=== PATIENT | female | born 1955 | race Caucasian/White ===

== ENCOUNTER 2016-10-20 13:25 | Emergency (ER) | payer MEDICARE ==
[2016-10-20 14:32] VITALS: BP 150/78
--- NOTE | 2016-10-20 14:37 | UC ---
Back Pain HPI - HPI Summary HPI Summary: left side of low back pain ful, pain shoots down in to buttocks, patient is concerned about hardware failure when she stepped hard down off a curb 2 days ago - History of Current Complaint Chief Complaint: UCBackPain Stated Complaint: SEVERE BACK PAIN-LEFT SIDE-BACK SURGERY 5WKS AGO Time Seen by Provider: 10/20/16 14:36 Hx Obtained From: Patient ?: No Onset/Duration: Sudden Onset - 2, Still Present Timing: Constant Severity Initially: Moderate Severity Currently: Moderate Pain Intensity: 8 Pain Scale Used: 0-10 Numeric Back Pain: Is Discrete @ - left lower back Character: Aching, Spasmodic Aggravating: Movement, Bending, Walking Alleviating: Rest, Position Associated Signs And Symptoms: Positive: Weakness - right leg, Pain with Weight Bearing. Negative: Bladder Incontinence, Bowel Incontinence - Allergies/Home Medications Allergies/Adverse Reactions: Allergies Allergy/AdvReac Type Severity Reaction Status Date / Time No Known Allergies Allergy Verified 10/20/16 14:32 Home Medications: Home Medications QUEtiapine TAB* [Seroquel TAB*] 200 mg PO BEDTIME 10/20/16 [History Confirmed ] Venlafaxine EXT RELEASE CAP* [Effexor Xr CAP*] 150 mg PO DAILY 10/20/16 [ History Confirmed 10/20/16] PMH/Surg Hx/FS Hx/Imm Hx Previously Healthy: Yes Psychological History Of: Reports: Anxiety, Depression - Surgical History Surgical History: Yes Surgery Procedure, Year, and Place: SPINAL ANIYA AND PINS. HYSTERECTOMY. Back surgery. - Family History Known Family History: Positive: None - Social History Occupation: Disabled Lives: With Family Alcohol Use: None Substance Use Type: None Smoking Status (MU): Heavy Every Day Tobacco Smoker Amount Used/How Often: 1/2 PPD Have You Smoked in the Last Year: Yes Review of Systems Constitutional: Negative Skin: Negative Eyes: Negative ENT: Negative Respiratory: Negative Cardiovascular: Negative Gastrointestinal: Negative Genitourinary: Negative Motor: Negative Neurovascular: Negative Musculoskeletal: Arthralgia, Myalgia - right lower back Neurological: Negative Psychological: Negative All Other Systems Reviewed And Are Negative: Yes Physical Exam Triage Information Reviewed: Yes Appearance: Ill-Appearing - older than stated age, Pain Distress, Thin Vital Signs: Initial Vital Signs Temp 97.8 F 10/20/16 14:28 Pulse 65 10/20/16 14:28 Resp 16 10/20/16 14:28 BP 150/78 10/20/16 14:28 Pulse Ox 99 10/20/16 14:28 Vital Signs Reviewed: Yes Eye Exam: Normal Eyes: Positive: Conjunctiva Clear ENT Exam: Normal ENT: Positive: Normal ENT inspection, Hearing grossly normal. Negative: Nasal congestion, Nasal drainage, Trismus, Muffled/hoarse voice Dental Exam: Normal Neck exam: Normal Neck: Positive: Supple, Nontender, No Lymphadenopathy Respiratory Exam: Normal Respiratory: Positive: Chest non-tender, Lungs clear, Normal breath sounds, No respiratory distress, No accessory muscle use Cardiovascular Exam: Normal Cardiovascular: Positive: RRR, No Murmur, Pulses Normal, Brisk Capillary Refill Abdominal Exam: Normal Abdomen Description: Positive: Nontender, No Organomegaly, Soft Bowel Sounds: Positive: Present Musculoskeletal Exam: Normal Musculoskeletal: Positive: No Edema, Strength Limited @ - right leg, ROM Limited @ - in back due to pain Neurological Exam: Normal Neurological: Positive: Alert, Muscle Tone Normal Psychological Exam: Normal Skin Exam: Normal Back Pain Course/Dx - Course Course Of Treatment: hydrocodone, follow with the surgeon in the morning - Differential Dx/Diagnosis Differential Diagnosis/HQI/PQRI: Fracture, Strain, Sprain Provider Diagnoses: muscle strain lumbar back Discharge - Discharge Plan Condition: Stable Disposition: HOME Prescriptions: Hydrocodone-Acetaminophen [Hydrocodone/Acetaminophen 5-325 mg] 1 tab PO QID PRN #5 tab MDD 4 PRN Reason: Pain - Moderate To Severe Patient Education Materials: Musculoskeletal Pain (ED), Lower Back Exercises ( ED) Referrals: Anita Gil MD [Primary Care Provider] - Additional Instructions: call your back surgeon in the morning for an appointment for revaluation LASHONDA
[2016-10-20] MEDS ORDERED: HYDROcodone/ACETAMIN 5-325 MG* 1 TAB PO ONE (14:43)
--- NOTE | 2016-10-20 15:25 | RAD ---
Indication: Injury to the low back stepping off a curb. Removal of some spine fixation hardware 5 weeks ago. Comparison: September 08, 2014 radiographs. Technique: AP, lateral, and oblique views of the lumbar sacral spine. Report: Transitional segment at the lumbar sacral junction. Vertebral counting based on the lowest visible ribs considered the T12 level. Previous bilateral fixation hardware bridging the lumbar sacral junction and sacroiliac joints has been removed. Spinal fixation rods extending from the lower thoracic to the L5 level of the lumbar spine remain in place without evidence for gross component failure or loosening. Methylmethacrylate cement in place at L4 and L5. No vertebral body or posterior element fracture evident. Metallic markers consistent with bone graft noted at the L4-L5, L5-S1, and S1-S2 levels. Mild straightening relative to normal lumbar lordosis without spondylolisthesis at any level. Extensive bone graft visualized along the RIGHT margin of the spine from the L1 through the L5 levels. Unremarkable paraspinal soft tissue contours. IVC filter noted. IMPRESSION: Postsurgical change as described. No fracture or traumatic malalignment evident.
== END 2016-10-20 15:56 | disposition home or self-care (01) ==
LOC: UCCORT 13:25
DX: S39.012A Strain of muscle, fascia and tendon of lower back, initial encounter (principal); X58.XXXA Exposure to other specified factors, initial encounter; Y93.9 Activity, unspecified; Y99.9 Unspecified external cause status; F17.210 Nicotine dependence, cigarettes, uncomplicated
CPT/HCPCS: 72110; 99212; G0463

== ENCOUNTER 2017-01-11 16:44 | Observation (INO) | payer MEDICARE, BC ==
[2017-01-11 18:15] LABS: Hematocrit 32 % (35-47); Hemoglobin 10.3 g/dl (12.0-16.0); Mean Corpuscular HGB Conc 32 g/dl (31-36); Mean Corpuscular Hemoglobin 29 pg (27-31); Mean Corpuscular Volume 91 fL (80-97); Mean Platelet Volume 9 um3 (7.4-10.4); Red Blood Count 3.51 10^6/ul (4.0-5.4); Red Cell Distribution Width 16 % (10.5-15); White Blood Count 5.6 10^3/ul (3.5-10.8)
[2017-01-11] MEDS ORDERED: Morphine INJ* 4 MG/ML 1 ML SYRINGE IV ONE (18:31)
[2017-01-11] MEDS ORDERED: Acetaminophen TAB* 325 MG PO PRN (18:32)
[2017-01-11] MEDS ORDERED: PEG 3000 GI LAVAGE* 1 GALLON PO ONE (18:34)
[2017-01-11 18:38] LABS: Albumin 3.6 g/dL (3.2-5.2); BUN/Creatinine Ratio 18.6 (8-20); Calcium 8.8 mg/dL (8.6-10.3); EGFR African American 132.8 (>60); EGFR Non-African American 103.3 (>60); Globulin 2.8 g/dL (2-4); Potassium 3.8 mmol/L (3.5-5.0); Total Bilirubin 0.3 mg/dL (0.2-1.0); Total Protein 6.4 g/dL (6.4-8.9)
[2017-01-11] MEDS: NS 0.9% 1000 ML* 1,000 ML IV SCH ×2 (18:41→20:10)
[2017-01-11] MEDS ORDERED: Gabapentin CAP(*) 300 MG PO SCH (18:45)
[2017-01-11] MEDS ORDERED: QUEtiapine TAB* 100 MG PO SCH (21:00)
[2017-01-11] MEDS: oxyCODONE/Acetamin 5/325 MG* TAB PO PRN (21:48)
[2017-01-11] MEDS: Metaxalone TAB* 800 MG PO SCH (21:49)
[2017-01-11] MEDS: Gabapentin CAP(*) 300 MG PO SCH (22:09)
[2017-01-12] MEDS: Morphine INJ* 2 MG/ML 1 ML SYRINGE IV PRN ×2 (00:10→06:39)
[2017-01-12] MEDS: Gabapentin CAP(*) 300 MG PO SCH ×4 (00:15→16:52)
--- NOTE | 2017-01-12 02:09 | CONS ---
CONSULTATION NOTE: DATE OF CONSULT: 01/11/17 REASON FOR CONSULT: Lower GI bleeding. NARRATIVE: Ms. Lares is a 61-year-old woman transferred today from the [facility] for GI bleeding. The patient awoke this morning and around 10 a.m. had a bowel movement, which was mostly pure blood, yves in color. She had 2 subsequent episodes of bleeding, which she reports as high volume. She has had no associated abdominal pain. Since this morning, she has had no further bleeding. She initially presented to the [facility] where she was hemodynamically stable and on rectal exam did have fresh blood. Data demonstrated her hemoglobin was 10.7, this was in comparison to 9.8 on but 11.7 on 01/05/17. She was therefore transferred to our emergency room. She has had no further bleeding. She has the pertinent history of being recently hospitalized for a pelvic fracture. This was a week ago, for which she was in the hospital for 3 days. No surgical intervention was performed. She was supposed to start on Xarelto for DVT prophylaxis but did not and was started on aspirin instead. She has had no prior history of GI bleeding and did undergo a colonoscopy, both in 2001 and 2007. The 2007 study was normal. The 2001 study was notable for evidence of hyperplastic polyps which were removed. She has experienced some moderate weight loss unexplained in the last 3 months, her believes 20 pounds, for which she started Boost with some recovery of that weight. She has a tendency towards constipation but attributes this to pain medicine side effects. PAST MEDICAL HISTORY: Includes osteoporosis, fractures of the back and pelvis. She had surgery on her back with placement of rods. She also had a stimulator placed for pain control at one point but states that that was removed. PAST SURGICAL HISTORY: Includes back surgery, hysterectomy for fibroids and hernia repair. FAMILY HISTORY: Notable for a mother and brother who had colorectal cancer. SOCIAL HISTORY: She lives with her . REVIEW OF SYSTEMS: She denies any black stools, nausea, vomiting or abdominal pain. She has had no fevers or chills. Again, she has a tendency towards constipation but this is not a recent change. PHYSICAL EXAM: General: On physical exam, she is a pleasant, thin, petite woman, in no apparent distress. She does appear pale. She appears clinically euvolemic. Vital Signs: Temperature is 98.4, blood pressure is 149/92, heart rate is 51 and regular. Her lungs are clear anteriorly. Cardiac Exam: Reveals a regular rhythm without murmur. Abdomen: Soft. There is some hyperactivity to her bowel sounds. There is no tenderness, mass, organomegaly. Extremities: Reveal no edema. DIAGNOSTIC STUDIES/LAB DATA: Data from our facility includes hemoglobin of 10.3 , white count of 5.6. Review of CT scan, which was performed in [place] is an unremarkable bowel gas pattern. There is a question of diverticulosis of the colon. No obstruction. IMPRESSION: A 61-year-old woman with a history of osteoporosis, recent admission for pelvic fracture, placed her on aspirin, now with sudden onset of bright red blood per rectum in the absence of pain. She seems relatively stable at this point without a significant change in her hemoglobin. Vital signs have been stable. Etiologies statistically would favor benign entities such as diverticulosis. It is inconceivable to consider neoplasia given her family background and her moderate weight loss recently. We will plan on prepping her tonight with Colyte and plan on performing a colonoscopy tomorrow. The challenges will certainly be managing this with her pelvic fracture, although I do believe in discussing that with her. We could probably position her to be comfortable. This was discussed with her. Further recommendations will follow thereafter. [id number]/[facility] #: [id number] GUERLINE
--- NOTE | 2017-01-12 02:26 | HP ---
CC: Dr. Gil * ADMISSION HISTORY AND PHYSICAL: DATE OF ADMISSION: 01/11/17 PRIMARY CARE PROVIDER: Dr. Gil. ADMITTING PROVIDER: CELESTINO Campbell CONSULTING AIRPORT TOWER CONTROLLER: Dr. Avitia. SUPERVISING PHYSICIAN: Stas Bills MD * (DICTATED BY CELESTINO CAMPBELL) CHIEF COMPLAINT: Rectal bleeding. HISTORY OF PRESENT ILLNESS: This is a 61-year-old female with history of osteoporosis and scoliosis as well as anxiety, who was recently treated for a spontaneous pubic ramus fracture at [facility] and returned to their emergency department today with complaints of 2 episodes of bright red blood per rectum. The patient had a hospital stay of approximately 3 days, during which she received prophylactic doses of heparin products and was discharged with instructions to use Xarelto, but this co-pay was unaffordable and she was subsequently using full strength of aspirin, 325 mg. The patient generally has some constipation, but awoke early this morning with the urge to defecate and had rather a large volume of bright red blood on 2 occasions. She has had no further bowel movements since that time. She presented to [facility] with these complaints. Labs demonstrated actually a slight improvement since her discharge on the of this month. Hemoglobin at that time was listed at 9.8 g/dL, measurement earlier today was at 10.7 g/dL. There is no GI coverage available at [facility] and she was subsequently transferred to our facility for evaluation after acceptance by Dr. Avitia. Noted incidentally on the CT scan performed at [facility] was a consolidation in the left lower lobe as well as bladder wall thickening. The patient states that she has had an occasional cough, no significant shortness of breath, no fevers or chills. She does continue to smoke approximately half a pack of cigarettes daily. She states she has been using a flutter valve at home. She denies any urinary symptoms. PAST MEDICAL HISTORY: 1. Anxiety. 2. Osteoporosis. 3. Scoliosis. PAST SURGICAL HISTORY: Multiple fusion procedures for cervical through lumbar spines. HOME MEDICATIONS: 1. Gabapentin 600 mg p.o. q.6 hours. 2. Aspirin 325 mg p.o. daily. 3. Skelaxin 800 mg p.o. 4 times a day. 4. Oxycodone 5 mg p.o. q.6 hours. 5. Seroquel 200 mg p.o. at bedtime. 6. Senna/docusate 2 tablets p.o. twice daily. 7. Venlafaxine 150 mg p.o. daily. SOCIAL HISTORY: The patient lives at home with her . She smokes half a pack of cigarettes daily with [id number] smoking history. She denies regular alcohol consumption. REVIEW OF SYSTEMS: As noted above in HPI, all other systems were reviewed and otherwise negative. PHYSICAL EXAMINATION GENERAL: This is a fatigued 61-year-old female lying in a hospital stretcher, who appears mildly uncomfortable, but is in no acute distress. VITAL SIGNS: Temperature 96.8 degrees Fahrenheit, pulse 72 beats per minute, respiratory rate 17, oxygen saturation 97% on room air, and blood pressure 164/ 89 mmHg. HEENT: Head is normocephalic, atraumatic. Mucous membranes are pink and moist. RESPIRATORY: Lungs are clear to auscultation without wheezes, crackles, or rhonchi. CARDIOVASCULAR: Heart has a regular rate and rhythm without murmurs, rubs, or gallops. ABDOMEN: Soft with bowel sounds present and maybe very mild left lower quadrant tenderness to palpation. EXTREMITIES: Trace edema appreciated bilaterally. SKIN: There is occasional small areas of ecchymosis, but no other gross changes. DIAGNOSTIC STUDIES/LAB DATA: CBC shows a hemoglobin of 10.3, no leukocytosis, normal platelet count. Chemistries from [facility] are grossly normal. Repeat CMP is pending at this time. Imaging: CT of the abdomen and pelvis completed at [place] [place], per report shows known left pubic ramus fracture as well as bladder wall thickening and left lower lobe consolidation. ASSESSMENT AND PLAN: This is a 61-year-old female with anxiety and osteoporosis , who presents with bright red blood per rectum from [facility]. 1. Lower GI bleed - the patient appears to be stable at this time. Dr. Avitia has evaluated this patient and plans for colonoscopy tomorrow morning. The patient will be started on clear liquids this evening with a GoLYTELY prep. No further aspirin or other anticoagulants will be given at this time. 2. Pubic ramus fracture - this is a nonsurgical fracture. She was discharged on full strength aspirin for DVT prophylaxis - this will be stopped at this time and there is no strong indication to resume despite results of colonoscopy after a large volume blood loss. We will work on pain control as she states that the 5 mg q.6 hours has not been adequate for her. We will treat her with morphine here in the emergency department and increase oxycodone dose for additional management. The patient has followup with Dr. Marquez at [facility] in [place] for Friday of this week. 3. Left lower lobe consolidation - this is an incidental finding appreciated on CT from earlier today without any clinical signs of pneumonia. More likely represents atelectasis after a recent hospital stay and limited mobility secondary to her pubic ramus fracture. We will encourage use of a flutter valve. 4. Bladder wall thickening - this is also an incidental finding appreciated on CT. She has no urinary complaints. We will start with urinalysis, but no empiric therapy necessary. 5. Anxiety - continue her home medications. 6. Osteoporosis. 7. Code status: The patient is full code. 8. DVT prophylaxis - chemical prophylaxis is contraindicated in the setting of acute bleeding. We will place SCDs at this time. 9. Healthcare proxy is the patient's , Brennan. 10. Disposition: The patient is being admitted observation status for lower GI bleed with pending colonoscopy for tomorrow morning. Anticipate possible discharge tomorrow. CELESTINO CAMPBELL [id number]/[facility] #: [id number] GUERLINE
[2017-01-12] MEDS: NS 0.9% 1000 ML* 1,000 ML IV SCH ×2 (04:34→12:46)
[2017-01-12 05:58] LABS: Hematocrit 32 % (35-47); Hemoglobin 10.1 g/dl (12.0-16.0); Mean Corpuscular HGB Conc 32 g/dl (31-36); Mean Corpuscular Hemoglobin 29 pg (27-31); Mean Corpuscular Volume 92 fL (80-97); Mean Platelet Volume 9 um3 (7.4-10.4); Red Blood Count 3.48 10^6/ul (4.0-5.4); Red Cell Distribution Width 16 % (10.5-15)
[2017-01-12 06:18] LABS: BUN/Creatinine Ratio 15.7 (8-20); Calcium 8.5 mg/dL (8.6-10.3); EGFR African American 157.1 (>60); EGFR Non-African American 122.2 (>60); Potassium 3.6 mmol/L (3.5-5.0)
[2017-01-12] MEDS ORDERED: Venlafaxine EXT RELEASE CAP* 75 MG PO SCH (09:00)
[2017-01-12] MEDS: oxyCODONE/Acetamin 5/325 MG* TAB PO PRN (09:11)
[2017-01-12] MEDS: Metaxalone TAB* 800 MG PO SCH ×3 (09:13→16:50)
[2017-01-12] MEDS ORDERED: Morphine INJ* 4 MG/ML 1 ML SYRINGE IV PRN ×2 (11:12→11:16)
[2017-01-12] MEDS: Ondansetron INJ* 2 MG/ML VIAL IV SCH ×2 (11:30→15:40)
[2017-01-12 11:56] VITALS: BP 131/53
[2017-01-12] MEDS ORDERED: fentaNYL* 50 MCG/ML 2 ML VIAL (100 MCG VIAL) ONE (13:38)
[2017-01-12] MEDS ORDERED: Midazolam* 1 MG/ML 10 ML VIAL (10 MG) ONE (13:39)
--- NOTE | 2017-01-13 08:09 | PRO ---
CC: Dr. Anita Gil * DATE OF PROCEDURE: 01/12/17 - ROOM #[id number] PROCEDURE: Colonoscopy. MEDICINES USED: Versed 10 mg IV, Fentanyl 100 mcg IV. NARRATIVE: This is a pleasant 61-year-old woman presenting with a lower GI bleed. She experienced several episodes of bright red blood per rectum yesterday and since had no recurrence. She had recently been hospitalized for a pelvic fracture and has been on chronic pain medicines with some constipation. For this reason, colonoscopy is being carried out. DESCRIPTION OF PROCEDURE: After the procedure was discussed with the patient, risks and benefits were outlined, written consent was obtained, the patient was placed in the left lateral decubitus position and a rectal exam was performed. The rectal exam was normal without any palpable abnormality. At that point, colonoscopy was carried out. A video adult flexible colonoscope was inserted anally and advanced very carefully into the cecum. The cecum was identified by the appendiceal orifice and the ileocecal valve. The quality of the preparation was actually quite good. There was some retained material seen but I think with extensive irrigation and suctioning, views were good. The patient tolerated the procedure well and there were no immediate complications. FINDINGS: Colonoscopy into the cecum was successful. At that level, the colonoscope was slowly withdrawn and careful inspection was carried out. Within the lumen, there was no evidence of blood, although there was some retained material. Within the rectum, there was a linear ulceration with a blood clot associated with it. It was not actively bleeding, but likely consistent with a stercoral ulceration. No other mucosal abnormality was detected. There was no polyp or mass. The submucosal vascular pattern was normal. The rectum was viewed both in the forward view and retroflex position and was normal. CONCLUSION: Stercoral ulcer as described above, likely a consequence of the patient's constipation, otherwise normal colonoscopy. RECOMMENDATION: The results were discussed with the patient. She will be monitored and discharged. Better bowel regimen would be emphasized to prevent recurrence. [id number]/[facility] #: [id number] [facility]
--- NOTE | 2017-01-13 09:16 | DS ---
CC: Dr. Gil; Dr. Fuentes Avitia, Gastroenterology DISCHARGE SUMMARY: DATE OF ADMISSION: 01/11/17 DATE OF DISCHARGE: 01/12/17 PRIMARY CARE PHYSICIAN: Dr. Gil. FOOD AND BEVERAGE CASHIER: Fuentes Avitia MD PRINCIPAL DISCHARGE DIAGNOSES: 1. Bright red blood per rectum. 2. Rectal ulcer. SECONDARY DIAGNOSES: 1. Recent pelvic fracture. 2. Anxiety. 3. Osteoporosis. 4. Scoliosis. DISCHARGE MEDICATION REGIMEN: 1. Senokot-S 2 tablets by mouth 2 times daily. 2. Oxycodone 5 mg by mouth every 6 hours as needed for pain. 3. Metaxalone 800 mg by mouth 4 times daily. 4. Aspirin 325 mg by mouth daily. 5. Gabapentin 600 mg by mouth every 6 hours. 6. Venlafaxine 150 mg by mouth daily. 7. Seroquel 20 mg by mouth at bedtime. 8. MiraLAX 17 g by mouth daily. STUDIES DONE DURING HOSPITALIZATION: Colonoscopy, final report is pending at this time. However, as per Dr. Avitia, he found a rectal ulcer that was likely to secondary to constipation. The remainder of the colonoscopy was relatively normal. HISTORY OF PRESENT ILLNESS AND HOSPITAL SUMMARY: Please see the full history and physical by CELESTINO Lovelace, for full details. Briefly, Ms. Lares is a 61-year- old female with a past medical history as above, who presented to the hospital after transferring from [place] where she had bright red blood per rectum. The patient recently had a pelvic fracture that was spontaneous and she was treated conservatively at [place] with pain medications as well as full dose aspirin for prophylaxis. The patient's hemoglobin was stable throughout the hospitalization here and she had no further episodes of bleeding. Once here, she was seen by Dr. Avitia from gastroenterology who planned a colonoscopy. This was done on 01/12/17 and final report is pending, but he spoke to me on the phone, telling me that he found a sterocoral rectal ulcer that was likely due to prolonged constipation, which may be secondary to the patient's recent fracture and narcotic use, decrease in her GI motility. As the patient's hemoglobin is relatively stable, no specific intervention was done at this time aside from adding MiraLAX to the patient's bowel regimen and encouraging her to make sure her stools remain soft. The patient will follow up with her PCP as an outpatient as well as with Dr. Avitia of GI. PHYSICAL EXAMINATION: Physical exam on discharge, pleasant, elderly female, lying in her bed, in no apparent distress. Head: Normocephalic, atraumatic. Eyes: Anicteric sclerae. ENT: Dry mucous membranes. No cervical adenopathy. Cardiovascular: Regular rate and rhythm. S1, S2 present. No murmurs, gallops, or rubs. Abdomen is soft, nontender, nondistended. Bowel sounds positive. Extremities: No cyanosis, clubbing, or edema. Neuro: The patient is alert and oriented x3. No focal neurological deficits. TIME SPENT: Total time spent on this discharge, 40 minutes. This is a summary of hospitalization, please see the full medical record for further details. [id number]/[facility] #: [id number] MTDD
--- NOTE | 2017-01-13 10:12 | ED ---
Azar Baxter Auryana, scribed for Wilmer Block MD on 01/11/17 at 1717 . GI/ HPI - HPI Summary HPI Summary: 61 year old female presents with GI bleeding starting at 10:00 this morning. She reports that she was hemorrhaging - 2 episodes this morning. She denies any dizziness, abdominal pain, SOB, palpitations, or any feeling of near syncope. Patient reports that she also has left hip and left sided back pain secondary to left superior ramus fracture due to osteoporosis and is awaiting consult from her physician for surgery. She is unable to walk due to pain. She was recently discharged 01/07/17 from [facility] - receiving Lovenox injections into the abdomen. Her last meal was this morning - Ritz crackers. She was seen at [facility] and referred to the ED for further work up and management - (+) blood present with rectal exam done [employer]. She denies any previous episode of rectal bleeding. PMHx is significant for GERD, HLD, left inguinal herniorrhaphy, hysterectomy, and back surgery. - History of Current Complaint Chief Complaint: EDGIBleed Time Seen by Provider: 01/11/17 17:10 Stated Complaint: RECTAL BLEEDING Hx Obtained From: Patient Onset/Duration: Started Hours Ago, Still Present Timing: Intermittent - 2 episodes Severity: Moderate Current Severity: Moderate Pain Intensity: 0 - NO ABDOMINAL PAIN Associated Signs and Symptoms: Positive: Other: - BLOOD PER RECTUM, LEFT HIP AND LEFT SIDED BACK PAIN Aggravating Factor(s): Movement - AGGRAVATES LEFT HIP PAIN - Allergy/Home Medications Allergies/Adverse Reactions: Allergies Allergy/AdvReac Type Severity Reaction Status Date / Time No Known Allergies Allergy Verified 10/20/16 14:32 Home Medications: Home Medications Aspirin [Pretty Advanced Aspirin Re] 325 mg PO DAILY 01/11/17 [History Confirmed 01/11/17] Metaxalone TAB* [Skelaxin TAB*] 800 mg PO QID 01/11/17 [History Confirmed ] Oxycodone HCl [Oxaydo] 5 mg PO Q6H 01/11/17 [History Confirmed 01/11/17] Senna/Docusate (NF) [Sennokot-S(NF)] 2 tab PO BID 01/11/17 [History Confirmed ] PMH/Surg Hx/FS Hx/Imm Hx Cardiovascular History: Reports: Hx Hypercholesterolemia Respiratory History: Reports: Other Respiratory Problems/Disorders - BRONCHITIS GI History: Reports: Hx Gastroesophageal Reflux Disease History: Reports: Other Problems/Disorders - UTERINE FIBROIDS Musculoskeletal History: Reports: Other Musculoskeletal History - CHRONIC BACK PAIN Psychiatric History: Reports: Hx Anxiety, Hx Depression - Surgical History Surgery Procedure, Year, and Place: SPINAL ANIYA AND PINS. HYSTERECTOMY. Back surgery. Left inguinal herniorrhaphy. Infectious Disease History: Denies: Hx Clostridium Difficile, Hx Hepatitis, Hx Human Immunodeficiency Virus (HIV), Hx of Known/Suspected MRSA, Hx Shingles, Hx Tuberculosis, Hx Known/ Suspected VRE, Hx Known/Suspected VRSA, History Other Infectious Disease, Traveled Outside the [place] in Last 30 Days - Family History Known Family History: Positive: Cardiac Disease - [place], Hypertension, Other - COLON [place] - Social History Lives: With Family Alcohol Use: None Substance Use Type: Reports: None Smoking Status (MU): Heavy Every Day Tobacco Smoker Amount Used/How Often: 1/2 PPD Have You Smoked in the Last Year: Yes Review of Systems Constitutional: Negative Positive: Other - no dizziness . Negative: Fever Eyes: Negative ENT: Negative Cardiovascular: Negative Respiratory: Negative Negative: Shortness Of Breath Positive: Other - GI hemorrhage Genitourinary: Negative Positive: Arthralgia - left hip and left sided back pain Skin: Negative Neurological: Negative Negative: Syncope Psychological: Normal All Other Systems Reviewed And Are Negative: Yes Physical Exam - Summary Physical Exam Summary: VITAL SIGNS: Reviewed. GENERAL: Patient is a well-developed and nourished female who is lying comfortable in the stretcher. Patient is not in any acute respiratory distress. HEAD AND FACE: No signs of trauma. No ecchymosis, hematomas or skull depressions. No sinus tenderness. EYES: PERRLA, EOMI x 2, No injected conjunctiva, no nystagmus. EARS: Hearing grossly intact. Ear canals and tympanic membranes are within normal limits. MOUTH: Oropharynx within normal limits. NECK: Supple, trachea is midline, no adenopathy, no JVD, no carotid bruit, no c- spine tenderness, neck with full ROM. CHEST: Symmetric, no tenderness at palpation LUNGS: Clear to auscultation bilaterally. No wheezing or crackles. CVS: Regular rate and rhythm, S1 and S2 present, no murmurs or gallops appreciated. ABDOMEN: Soft, non-tender. No signs of distention. No rebound no guarding, and no masses palpated. Bowel sounds are normal. EXTREMITIES: FROM in all major joints, no edema, no cyanosis or clubbing. Left hip/pelvic area pain secondary to hip/pelvic fracture. NEURO: Alert and oriented x 3. No acute neurological deficits. Speech is normal and follows commands. SKIN: Dry and warm. Triage Information Reviewed: Yes Vital Signs On Initial Exam: Initial Vitals Temp Pulse Resp BP Pulse Ox 96.8 F 72 17 164/89 97 01/11/17 16:45 01/11/17 16:45 01/11/17 16:45 01/11/17 16:45 01/11/17 16:45 Vital Signs Reviewed: Yes Diagnostics - Vital Signs Vital Signs Temp Pulse Resp BP Pulse Ox 01/11/17 16:45 96.8 F 72 17 164/89 97 - Laboratory Result Diagrams: 01/12/17 05:38 01/12/17 05:38 Lab Statement: Any lab studies that have been ordered have been reviewed, and results considered in the medical decision making process. GIGU Course/Dx - Course Assessment/Plan: 61 year old female presents with GI bleeding starting at 10:00 this morning. She reports that she was hemorrhaging - 2 episodes this morning. She denies any dizziness, abdominal pain, SOB, palpitations, or any feeling of near syncope. Patient reports that she also has left hip and left sided back pain secondary to left superior ramus fracture due to osteoporosis and is awaiting consult from her physician for surgery. She is unable to walk due to pain. She was recently discharged 01/07/17 from [facility] - receiving Lovenox injections into the abdomen. Her last meal was this morning - Ritz crackers. She was seen at [facility] and referred to the ED for further work up and management - (+) blood present with rectal exam done [employer]. She denies any previous episode of rectal bleeding. PMHx is significant for GERD, HLD, left inguinal herniorrhaphy, hysterectomy, and back surgery. This patient was transferred from [facility] for GI bleed and accepted by Dr. Avitia. The patient is hemodynamically stable. Dr Avitia requested to do a repeat CBC and admit the patient to the hospital services. They will prep for a colonoscopy tomorrow morning. I discussed the case with Dr. Stone who accepted the patient for admission. The patient is hemodynamically stable and A&Ox3. - Diagnoses Provider Diagnoses: GI bleed - Physician Notifications Discussed Care Of Patient With: Fuentes Avitia - recommends repeat CBC and admission to the hospitalist Time Discussed With Above Provider: 17:13 - Dr. Stone accepted the patient for admission (17:25) Discharge - Discharge Plan Condition: Good Disposition: HOME The documentation as recorded by the Azar fernandez Auryana accurately reflects the service I personally performed and the decisions made by me, Wilmer Block MD.
== END 2017-01-12 17:20 | disposition home or self-care (01) ==
LOC: ED 16:44 → MED 17:56
PROVIDERS: ADMIT Internal Medicine; ATTEND Hospitalist
DX: K92.2 Gastrointestinal hemorrhage, unspecified (principal); K62.6 Ulcer of anus and rectum; Z79.82 Long term (current) use of aspirin; J98.11 Atelectasis; F17.210 Nicotine dependence, cigarettes, uncomplicated; M81.0 Age-related osteoporosis without current pathological fracture; F41.9 Anxiety disorder, unspecified; M84.454D Pathological fracture, pelvis, subsequent encounter for fracture with routine healing
CPT/HCPCS: 36415; 80048; 80053; 85025; 86850; 86900; 86901; 96361; 96374; 96376; 99283; A9270-GY; G0378; J2250; J2270; J2405; J3010

== ENCOUNTER 2017-12-31 10:18 | Emergency (ER) | payer MEDICARE, BC ==
[2017-12-31 10:42] VITALS: BP 145/79
[2017-12-31] MEDS ORDERED: Ondansetron ODT TAB* 4 MG PO ONE (10:43)
--- NOTE | 2017-12-31 11:06 | UC ---
Back Pain HPI - HPI Summary HPI Summary: She has a long hx of spine disease, scoliosis, multiple surgeries, osteoporosis , prior spontaneous fractures. She sat down on Friday and as she touched down on the chair she had sudden pain in the left upper buttocks. There is no radiation below the knee and no foot or leg numbness. It hurts more to the touch. - History of Current Complaint Chief Complaint: UCBackPain Stated Complaint: BACK PAIN Time Seen by Provider: 12/31/17 10:42 Hx Obtained From: Patient Onset/Duration: Sudden Onset, Lasting Days Timing: Constant Severity Initially: Severe Severity Currently: Severe Pain Intensity: 6 Back Pain: Is Discrete @ Character: Dull, Aching Aggravating Factor(s): Movement, Walking, Other - palpation. Alleviating Factor(s): Rest, Position Associated Signs And Symptoms: Positive: Swelling, Pain with Weight Bearing. Negative: Redness, Bruising, Fever, Weakness, Numbness, Tingling, Abdominal Pain , Weight Loss - Allergies/Home Medications Allergies/Adverse Reactions: Allergies Allergy/AdvReac Type Severity Reaction Status Date / Time No Known Allergies Allergy Verified 12/31/17 10:32 Home Medications: Home Medications Buprenorphine TAB* [Subutex TAB*] 12 mg SL DAILY 12/31/17 [History Confirmed 05/10] Ibuprofen TAB* [Advil TAB*] 600 mg PO Q6H PRN 12/31/17 [History Confirmed ] PMH/Surg Hx/FS Hx/Imm Hx Previously Healthy: No - Surgical History Surgical History: Yes Surgery Procedure, Year, and Place: SPINAL ANIYA AND PINS. HYSTERECTOMY. Back surgery. Left inguinal herniorrhaphy. - Family History Known Family History: Positive: None, Cardiac Disease - [place], Hypertension, Other - COLON [place] - Social History Alcohol Use: None Substance Use Type: None Smoking Status (MU): Light Every Day Tobacco Smoker Type: Cigarettes Amount Used/How Often: 1-2 CIGS PER DAY Have You Smoked in the Last Year: Yes Review of Systems Constitutional: Negative Skin: Negative Gastrointestinal: Nausea - three days of nausea without abd pain, fever, melena. Musculoskeletal: Other: - left lower back pain. All Other Systems Reviewed And Are Negative: Yes Physical Exam Triage Information Reviewed: Yes Appearance: Well-Appearing, Pain Distress - There is obvious pain with changes in position. She is able to ambulate and transfer without assistance. Vital Signs: Initial Vital Signs Temp 97.9 F 12/31/17 10:35 Pulse 71 12/31/17 10:35 Resp 16 12/31/17 10:35 BP 145/79 12/31/17 10:35 Pulse Ox 99 12/31/17 10:35 Eye Exam: Normal Eyes: Positive: Conjunctiva Clear. Negative: Conjunctiva Inflamed ENT: Positive: Normal ENT inspection Neck: Positive: Supple, Nontender, No Lymphadenopathy Respiratory: Positive: Lungs clear, Normal breath sounds, No respiratory distress, No accessory muscle use. Negative: Respiratory distress, Decreased breath sounds, Accessory muscle use Cardiovascular: Positive: Brisk Capillary Refill Abdomen Description: Positive: Soft, Other: - No pulsatile mass and left inguinal femoral pulse intact.. Negative: CVA Tenderness (R), CVA Tenderness (L ), Distended, Guarding Musculoskeletal: Positive: Other: - there is no midline spine percussion tenderness. There is mainly tenderness of the left sacrum and left upper buttocks. There is no pelvis or iliac crest pain. Straight leg raise neg. Neurological: Positive: Alert, Muscle Tone Normal. Negative: Fatigued, Lethargic, Unresponsive Psychological: Positive: Age Appropriate Behavior Skin: Negative: rashes Diagnostics - Radiology No standard instances Xray Interpretation: No Acute Changes Radiology Interpretation Completed By: Radiologist Back Pain Course/Dx - Course Course Of Treatment: No signs or symptoms c/w aneursm, cord compression, infection, or serious nerve root involvement. She will return or go to ED for any worsening symptoms. X rays neg for fracture. - Differential Dx/Diagnosis Provider Diagnoses: Low back pain acute on the left. Upper left buttock pain. Discharge - Sign-Out/Discharge Documenting (check all that apply): Patient Departure - Discharge Plan Condition: Good Disposition: HOME Patient Education Materials: Low Back Strain (ED), Acute Low Back Pain (ED) Referrals: Anita Gil MD [Primary Care Provider] - 3 Days - Billing Disposition and Condition Condition: GOOD Disposition: Home
--- NOTE | 2017-12-31 11:32 | RAD ---
Indication: Osteoporosis evaluate for fracture. 3 views of lumbar spine are reviewed. There is methacrylate presumably from prior kyphoplasty at L3 and L4 vertebra with posterior fusion of the lower thoracic and lumbar spine. Diffuse osteopenia is noted. Degenerative disc disease is noted. IMPRESSION: Diffuse osteopenia is present. No definite fracture is noted although posterior fusion is noted. Prior kyphoplasty at L3 and L4.
--- NOTE | 2017-12-31 11:34 | RAD ---
Indication: Osteoporosis, evaluate for fracture 3 views of the pelvis demonstrates fractures of the left superior and inferior pubic ramus. There appears to be healing response noted. These fractures were present on a prior study dated 2017. IMPRESSION: Healing fractures of left superior and inferior pubic ramus. Pelvic ring is intact.
== END 2017-12-31 12:00 | disposition home or self-care (01) ==
LOC: UCCORT 10:18
DX: M79.1 Myalgia (principal); M54.5 Low back pain; F17.210 Nicotine dependence, cigarettes, uncomplicated
CPT/HCPCS: 72100; 72190; 99212; A9270-GY; G0463

== ENCOUNTER 2018-03-24 17:18 | Emergency (ER) | payer MEDICARE, BC ==
--- NOTE | 2018-03-25 11:01 | UC ---
- Progress Note Progress Note: no x-ray on 03/24/18 Discharge - Sign-Out/Discharge Documenting (check all that apply): Patient Departure All imaging exams completed and their final reports reviewed: No Studies - Discharge Plan Condition: Stable Disposition: LEFT WITHOUT BEING SEEN Referrals: Jeffery BRIGGS,Anita [Primary Care Provider] - - Billing Disposition and Condition Condition: STABLE Disposition: Left Without Being Seen
== END 2018-03-24 18:30 | disposition left against medical advice (07) ==
LOC: UCCORT 17:18
DX: M54.5 Low back pain (principal); R10.2 Pelvic and perineal pain; Z53.21 Procedure and treatment not carried out due to patient leaving prior to being seen by health care provider